=== PATIENT | male | born 1980 | race African-American/Black ===

== ENCOUNTER 2023-06-01 12:23 | Emergency (ER) | payer OTHER, SELFPAY ==
[2023-06-01 12:37] VITALS: BP 132/82
[2023-06-01 13:53] LABS: % Basophils 0.3 % (0-2); % Eosinophils 1.2 % (0-6); % Immature Granulocytes 0.2 % (0-0.5); % Lymphocytes 19.5 % (20.5-51.1); % Neutrophils 69.8 % (42.2-75.2); Absolute Eosinophils 0.1 10^3/uL (0-0.7); Absolute Lymphocytes 1.7 10^3/uL (1.2-3.4); Absolute Monocytes 0.8 10^3/uL (0.1-0.6); Absolute Neutrophils 6.2 10^3/uL (1.4-6.5); Hematocrit 46.1 % (39.0-52.0); Hemoglobin 15.9 g/dL (13.0-18.0); Mean Corp Hgb Conc. 34.5 g/dL (33.0-37.0); Mean Corpuscular Hgb 29.5 pg (27.0-31.0); Mean Corpuscular Volume 85.5 fL (80.0-94.0); Mean Platelet Volume 10.1 fL (7.4-10.4); Nucleated Red Blood Cells % 0 % (-); Platelet Count 237 10^3/uL (130-400); Red Blood Cell Count 5.39 10^6/uL (4.70-6.10); Red Cell Dist. Width 12.5 % (11.5-14.5); White Blood Cell Count 8.8 10^3/uL (4.8-10.8)
--- NOTE | 2023-06-01 14:10 | ED.GENMED ---
History of Present Illness
General
Chief Complaint: Abdominal Symptoms
Source: patient
Exam Limitations: none
Time Seen by Provider: 06/01/23 13:04
Nursing documentation reviewed up to this point in time: agreed with
Travel History
Have you had any contact with someone who has COVID-19?: No
Do you have any symptoms of coronavirus? Fever > 100 degrees, chills, cough, shortness of breath, sore throat, loss of taste or smell, muscle aches, or headache?: No
History of Present Illness
History of Present Illness:
42 Y/O M with RUQ pain/right chest pain x 1 week
h/o PUD treated years ago
pt says it started after eating some heavy/spicy foods. he had some GERD with it originally and used tums but then the GERD went away and he started having more RUQ pain. it is worse at night
he has'nt really had an appetite and he thinks it is worse after eating
he has been using peppermint tea which helped
last bm 3 days ago but pt hasn't been eatin gmuch
no fever, chills, back pain, plerutiic pain, sob, recent travel, vomiting, diarrhea.
never ahd this before
went to urgent care and sent here.
Past History
Past History
ED Past Medical History: Other (PUD)
Social History
Tobacco: Non-smoker
Review of Systems
Review of Systems
Allergies reviewed?: Yes
All Other Systems: Not applicable
Phy Exam
Physical Exam
Physical Exam:
GENERAL: Alert , in no apparent distress
EYE: pupils equal and reactive
NECK: Supple
ENT: o/p clr, mmm.
CARDIAC: Regular rate and rhythm .
LUNGS: Clear breath sounds bilaterally, no acute respiratory distress, no wheezes/rales/rhonchi
no chest wall rash or tendenress
ABDOMEN: Soft, without focal tenderness, no r/g, no cvat, normal bowel sounds
neg davidson's sign
neg mcburneyps point
NEUROLOGICAL: Alert and oriented, no focal neuro deficits
SKIN: Warm and dry, skin intact.
MUSCULOSKELETAL: No edema, well perfused. neg ed's sign
PSYCH: Normal and appropriate interaction.
Course
Orders/Labs/Results
Orders:
Orders
06/01/23 12:25
ECG [Electrocardiogram (*1)] Urgent
Reason for Study: Chest Pain
EKG- Treatment ONCE
06/01/23 13:41
IV Insert/Care/Rem.- Treatment PRN
Pantoprazole [Protonix IV] 40 mg IV NOW STA
US Abdomen Complete/Upper Urgent
Comment:
Reason For Exam: ruq pain x 1 week
06/01/23 13:44
Complete Blood Count/With Diff Urgent
Comprehensive Metabolic Panel Urgent
Lipase Urgent
06/01/23 16:32
Obstruct Series W/PA Chest [CR Obstruct Series W/pa Chest] Urgent
Comment:
Reason For Exam: ABD PAIN/RIGHT CHEST PAIN
Abnormal Lab Results
06/01/23
13:44
Absolute Monos (auto) 0.8 H 10^3/uL
(0.1-0.6)
Lymphocytes % 19.5 L %
(20.5-51.1)
Total Protein 8.7 H g/dl
(6.3-8.2)
06/01/23 13:44
06/01/23 13:44
Vital Signs
Initial and Last Documented VS:
Initial Vital Signs
Temp Pulse Resp BP Pulse Ox
98.2 F 78 16 132/82 98
06/01/23 12:37 06/01/23 12:37 06/01/23 12:37 06/01/23 12:37 06/01/23 12:37
Last Documented Vital Signs
Temp Pulse Resp BP Pulse Ox
98.2 F 71 18 120/75 100
06/01/23 12:37 06/01/23 16:51 06/01/23 16:51 06/01/23 16:51 06/01/23 16:51
MDM/Problems Addressed
Differential Diagnosis Includes:
tiki, gerd, gastritis, constipation
MDM/Problems Addressed:
42 y/o M with h/o PUD previously was on ppi but then discontinued
here with epigastric pain and gerd syptmoms after eating spicy and heavy meal last week
then the past few days he has had right upper abd pain, worse at night, lack of appetite
and is constipated
no fever, chills, vomiting
gerd sypmtoms resolved
no cp, sob, pleuritic pain, PE rf.
labs reassuring
us borderline splenomegaly but no gb disease
xray c/w stool burden
probably havign pain from constpiation
feels better afte rpotonitx
restart protonix
f/u gi
bowel prep
return precautiosn
f/u regarding splenomegaly
*Critical Care Note
Total Time (30-74mins, 75-104mins- exclusive of procedures): Not Applicable
ED Attending Note
-
Portions of this chart may have been created with voice recognition software.� Occasional wrong word or��sound alike� substitutions may have occurred due to the inherent limitations of voice recognition software.
Discharge Plan
Departure
Patient Disposition: Home (Routine Discharge)
Date of Disposition: 06/01/23
Time of Disposition: 17:27
Patient with high blood pressure during this ER visit?: No
Condition: Fair
Covid-19: Not Applicable
Discharge Problem:
Acute constipation, GERD (gastroesophageal reflux disease)
Instructions: Constipation, Adult (DC), Acid Reflux and GERD in Adults (DC)
Prescriptions:
New
pantoprazole [Protonix] 20 mg tablet,delayed release (DR/EC)
20 mg PO DAILY Qty: 14 0RF
Referrals:
Bruno Soto MD [Active] - Follow up in 10 days (gi)
UNKNOWN - PT DOES,NOT KNOW [Family Provider] -
Activity Restrictions/Additional Instructions:
YOUR BLOOD WORK WAS REASSURING
YOUR ULTRASOUND SHOWED THAT YOUR SPLEEN IS TOP NORMAL IN SIZE BUT THERE ARE NO FINDINGS CONCERNING FOR GALLBLADDER DISEASE
FOR YOUR REFLUX SYPMTOMS YOU SHOULD TRY PROTONIX 20 MG ON AN EMPTY STOMACH IN THE MORNING, WAIT 1 HOUR BEFORE EATING. DO THIS FOR 1-2 WEEKS.
BUT YOUR PAIN ALSO MAY BE DUE TO CONSTIPATION AND GAS. YOU HAD A LOT OF STOOL IN YOUR COLON ON XRAY
TRY MIRALAX ONCE OR TWICE A DAY FOR 3-4 DAYS IN A ROW (YOU CAN START WITH ONCE A DAY AND IF YOU NEED TWICE A DAY THEN DO THAT)
THIS SHOULD HELP EMPTY YOUR COLON
FOLLOW UP WITH GASTRONENTEROLOGIST WELL A FAMILY DOCTOR
RETURN FOR: SEVERE PAIN, FEVER, VOMITING, DIARRHEA, SEVERE CONSTIPSTAION, SHORTNESS OF BREATH OR ANY CONCERNS.
EAT A BLANDER DIET, AVOID SPICY FOODS
TRY HIGHER FIBER FOODS AND DRINKING WATER.
Interventions
Interventions:
*Risk Screen - Suicide Last Done: 06/01/23 13:47
*General Assessment Last Done: 06/01/23 13:47
*Neglect/Abuse Screening Last Done: 06/01/23 13:47
*ED COVID-19 Vaccine History Last Done: 06/01/23 12:37
*Nursing Disposition Last Done: 06/01/23 18:09
WX-Vhfmid-Mgxguzpnpb Assessment Last Done: 06/01/23 13:47
Discharge Date and Time
Discharge Date/Time: 06/01/23 18:10
[2023-06-01 14:17] LABS: ALT (SGPT) 26 U/L (0-50); AST (SGOT) 27 U/L (17-59); Albumin 4.8 g/dl (3.5-5.0); Alkaline Phosphatase 100 U/L (38-126); Blood Urea Nitrogen 14 mg/dl (9-20); Calcium 9.5 mg/dl (8.4-10.2); Carbon Dioxide 23 mmol/L (22-30); Chloride 105 mmol/L (98-107); Glucose 81 mg/dl (70-99); Lipase 64 U/L (23-300); Sodium 137 mmol/L (135-145); Total Bilirubin 1.2 mg/dl (0.2-1.3); Total Protein 8.7 g/dl (6.3-8.2); eGFR > 60.00
[2023-06-01] MEDS: PROTONIX IV 40 MG IV (14:20)
[2023-06-01 16:51] VITALS: BP 120/75
== END 2023-06-01 18:10 | disposition home or self-care (01) ==
LOC: EMR 12:23
PROVIDERS: Physician Assistant; EMERGENCY PHYSICIAN Emergency Medicine
DX: K21.9 Gastro-esophageal reflux disease without esophagitis (principal); K59.09 Other constipation
CPT/HCPCS: 99285; 96374; 74022; 76700; 80053; 83690; 85025; 93005

== ENCOUNTER → 2024-05-04 10:17 | Outpatient (REF) | payer OTHER, SELFPAY | LOC: HWRAD 10:17 | DX: M54.2 Cervicalgia (principal) | CPT/HCPCS: 72050; 73030 ==